=== PATIENT | male | born 1990 | race Caucasian/White ===

== ENCOUNTER 2023-02-15 11:11 | Emergency (ER) | payer OTHER, SELFPAY ==
--- NOTE | ~2023-02-15 | XR_ITS ---
EXAMINATION: XR CHEST CLINICAL INFORMATION: Shortness of breath. History of fall. Evaluate for pneumonia. COMPARISON: None available. TECHNIQUE: 2 views of the chest were obtained. FINDINGS: Lungs are well-inflated and clear. Trachea is midline in position. No interstitial disease, consolidation or mass. No pleural effusion or pneumothorax. Cardiac silhouette and pulmonary vessels are normal in size. The mediastinum and tej have normal contour. The visualized bones, and upper abdomen, are unremarkable. No rib fractures are seen on these standard views of the chest. XR/XR chest 2V IMPRESSION: No acute cardiopulmonary abnormality.
[2023-02-15 11:19] VITALS: BP 110/63; BP 131/85; PULSE 96; PULSE 97; RESP 20; TEMP 36.7; O2SAT 96; O2SAT 97; BMI 46.9
--- NOTE | 2023-02-15 11:28 | ECG_ITS ---
Test Reason : CHEST PAIN Blood Pressure : / mmHG Vent. Rate : 098 BPM Atrial Rate : 098 BPM P-R Int : 140 ms QRS Dur : 088 ms QT Int : 358 ms P-R-T Axes : 016 014 034 degrees QTc Int : 457 ms Normal sinus rhythm Normal ECG No previous ECGs available Referred By: Generic ED Physician Electronically Signed By:
[2023-02-15 11:29] VITALS: PULSE 93; O2SAT 96
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
[2023-02-15 12:46] VITALS: BP 126/96; PULSE 86; RESP 18; O2SAT 97
[2023-02-15 12:49] LABS: MANUAL DIFF FLAG NO
[2023-02-15 12:50] LABS: Basophils Absolute Auto 0.1 X10*3/uL (0.0-0.2); Basophils Percent Auto 0.5 % (0-2); Eosinophils Absolute Auto 0.3 X10*3/uL (0.0-0.4); Eosinophils Percent Auto 2.6 % (0-4); Hematocrit 40.2 % (42.0-52.0); Hemoglobin 13.5 g/dl (14.0-18.0); Imm Gran Abs Auto 0.08 X10*3/uL (0.00-0.03); Imm Gran Pct Auto 0.8 % (0.0-0.4); Lymphocytes Absolute Auto 2.9 X10*3/uL (1.2-4.9); Lymphocytes Percent Auto 27.6 % (20-40); Mean Corpuscular HGB Conc 33.6 g/dl (31.0-36.0); Mean Corpuscular Hemoglobin 30.7 pg (27.0-33.0); Mean Corpuscular Volume 91.4 fL (80.0-98.0); Mean Platelet Volume 9.5 fL (9.4-12.4); Monocytes Percent Auto 9.5 % (2-11); Neutrophils Absolute Auto 6.2 x10*3/uL (2.0-8.3); Platelet Count 271 X10*3/uL (160-400); Red Cell Distribution Width 12.3 % (11.0-16.0); White Blood Count 10.5 X10*3/uL (4.8-10.8)
[2023-02-15 12:56] LABS: Prothrombin Time 11.7 SEC (10.0-13.1)
[2023-02-15] MEDS: Ibuprofen 400 MG TABLET PO (12:57)
[2023-02-15] MEDS: hydrOXYzine HCL 50 MG TABLET PO (12:57)
[2023-02-15 13:06] LABS: Alanine Aminotransferase 19 U/L (0-40); Albumin Level 4.1 g/dL (3.5-5.0); Alkaline Phosphatase 65 U/L (39-117); Anion Gap 14 (12-20); Aspartate Amino Transferase 19 U/L (5-37); Bilirubin Total 0.4 mg/dL (0.0-1.0); Blood Urea Nitrogen 18 mg/dL (9-16); Carbon Dioxide 22 mmol/L (22-29); Chloride 107 mmol/L (96-108); Creatinine Clr Calc Pharmacy 183.6; Estimated Glomerular Filt Rate > 60; Glucose Random 84 mg/dL (60-115); Lipase 23 U/L (8-78); Potassium 4.3 mmol/L (3.3-5.1); Sodium 139 mmol/L (135-145); Total Protein 6.8 g/dL (6.5-8.0)
[2023-02-15 13:10] LABS: B Type Natriuretic Peptide < 10 pg/mL (<100)
[2023-02-15 13:14] LABS: Troponin-I High Sensitivity < 2.7 ng/L (<3.5-35.0)
[2023-02-15 13:17] LABS: D Dimer High Sensitivity < 150 NG/ML
== END 2023-02-15 17:30 | disposition other institution (70) ==
PROVIDERS: Emergency Provider Emergency Medicine Emergency Medical Services
DX: R07.89 Other chest pain (principal); F41.0 Panic disorder [episodic paroxysmal anxiety]; R55 Syncope and collapse; I10 Essential (primary) hypertension; E78.5 Hyperlipidemia, unspecified; Z87.820 Personal history of traumatic brain injury; Z79.899 Other long term (current) drug therapy; F17.210 Nicotine dependence, cigarettes, uncomplicated
CPT/HCPCS: 36415; 71046; 80053; 83690; 83880; 84484; 85025; 85379; 85610; 85730; 99283; 99284; 99285

== ENCOUNTER 2023-03-07 23:09 | Emergency (ER) | payer OTHER, SELFPAY ==
--- NOTE | ~2023-03-07 | XR_ITS ---
EXAMINATION: XR HAND/WRIST, LEFT CLINICAL INFORMATION: trauma,pain COMPARISON: None TECHNIQUE: PA, lateral, and oblique views of the left hand and wrist. FINDINGS: The bones and soft tissues are normal. No fracture. Alignment is anatomic. Joint spaces are maintained. No erosions or soft tissue calcifications. XR/XR hand wrist LT IMPRESSION: Normal radiographs of the hand and wrist.
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
--- NOTE | ~2023-03-07 | XR_ITS ---
EXAMINATION: XR HIP, LEFT CLINICAL INFORMATION: trauma,pain COMPARISON: None available. TECHNIQUE: AP view of pelvis and AP and frog-leg lateral views of the left hip. FINDINGS: No acute fracture or malalignment. There is asphericity of the femoral head-neck junction superolaterally as can be seen with cam-type deformity and femoral acetabular impingement. Left hip joint appears relatively well-preserved. Bone mineralization is normal. Soft tissues are normal. Similar cam-type deformity is evident at the right hip. Pubic symphysis and SI joints are unremarkable. XR/XR hip LT min 2V IMPRESSION: 1. No acute osseous abnormalities in the pelvis and left hip. 2. 

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
[2023-03-07 23:14] VITALS: BP 118/78; PULSE 102; O2SAT 95
[2023-03-07 23:39] VITALS: BP 139/73; PULSE 100; RESP 17; TEMP 36.9; O2SAT 97; BMI 42.6
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
== END 2023-03-08 03:24 | disposition home or self-care (01) ==
PROVIDERS: Emergency Provider Emergency Medicine Emergency Medical Services
DX: S09.90XA Unspecified injury of head, initial encounter (principal); Y04.2XXA Assault by strike against or bumped into by another person, initial encounter; Y93.9 Activity, unspecified; Y92.049 Unspecified place in boarding-house as the place of occurrence of the external cause; Y99.9 Unspecified external cause status
CPT/HCPCS: 70450; 71045; 72125; 73110; 73130; 73502; 99282; 99284